=== PATIENT | female | born 1940 | race African-American/Black ===

== ENCOUNTER 2016-09-04 13:45 | Outpatient (CLI) | payer MEDICARE ==
[2016-09-04 14:21] LABS: Hemoglobin A1c 5.7 % (4.0-6.0)
[2016-09-04 14:29] LABS: ALT (SGPT) 172 U/L (8-55); AST (SGOT) 148 U/L (5-34); Albumin 3.8 g/dL (3.4-4.8); Alkaline Phosphatase 174 U/L (40-150); Anion Gap 13 mmol/L (10-20); BUN (Urea Nitrogen) 24 mg/dL (9.8-20.1); Bilirubin, Total 0.6 mg/dL (0.2-1.2); Calc. Creatinine Clearance 0 mL/min (70-130); Calcium 9.3 mg/dL (7.8-10.44); Carbon Dioxide 25 mmol/L (23-31); Cardiac Risk 4.1 (Less than 4.5); Chloride 104 mmol/L (98-107); Cholesterol 128 mg/dl (< 200 Desired); Estimated GFR-MDRD 48; Globulin 5.3 g/dL (2.4-3.5); Glucose 91 mg/dL (83-110); HDL Cholesterol 31 mg/dL (>60 Neg Risk); LDL Cholesterol, Calculated 79 mg/dL; Potassium 3.7 mmol/L (3.5-5.1); Protein, Total 9.1 g/dL (6.0-8.3); Sodium 138 mmol/L (136-145); Triglycerides 90 mg/dL (Less than 150)
[2016-09-04 14:35] LABS: #Basophils 0.2 thou/uL (0.0-0.2); #Eosinphils 0.2 thou/uL (0.0-0.7); #Monocytes 0.6 thou/uL (0.11-0.59); #Neutrophils 3.4 thou/uL (1.40-6.50); %Basophils 2.9 % (0.0-1.0); %Eosinophils 3.8 % (0.0-10.0); %Lymphocytes 31.1 % (21.0-51.0); %Monocytes 9.1 % (0.0-10.0); %Neutrophils 53.1 % (42.0-75.0); Hemoglobin 11.8 g/dL (12.0-16.0); Mean Corpuscular HGB CONC 32.4 g/dL (32.0-36.0); Mean Corpuscular Hemoglobin 28.3 pg (27.0-31.0); Mean Corpuscular Volume 87.4 fl (81.0-99.0); Mean Platelet Volume 8.5 fL (7.4-10.4); Platelet Count 364 thou/uL (130-400); RBC Distribution Width 14.2 % (11.5-14.5); Red Blood Cell (RBC) Count 4.18 mill/uL (4.20-5.40); White Blood Cell (WBC) Count 6.4 thou/uL (4.8-10.8)
== END 2016-09-04 13:46 | disposition home or self-care (01) ==
LOC: MADLABBHPM 13:45
PROVIDERS: ATTEND Family Medicine
DX: E78.5 Hyperlipidemia, unspecified (principal); I10 Essential (primary) hypertension
CPT/HCPCS: 36415; 80053; 80061; 83036; 84443; 85025

== ENCOUNTER 2016-10-22 16:26 | Outpatient (CLI) | payer MEDICARE ==
[2016-10-22 17:01] LABS: #Basophils 0.2 thou/uL (0.0-0.2); #Eosinphils 0.3 thou/uL (0.0-0.7); #Lymphocytes 2.9 thou/uL (1.20-3.40); #Monocytes 0.7 thou/uL (0.11-0.59); #Neutrophils 3.7 thou/uL (1.40-6.50); %Basophils 2.7 % (0.0-1.0); %Lymphocytes 37.1 % (21.0-51.0); %Monocytes 9.1 % (0.0-10.0); Hemoglobin 12.7 g/dL (12.0-16.0); Mean Corpuscular HGB CONC 33.4 g/dL (32.0-36.0); Mean Corpuscular Hemoglobin 29.5 pg (27.0-31.0); Mean Corpuscular Volume 88.4 fl (81.0-99.0); Mean Platelet Volume 8.8 fL (7.4-10.4); Platelet Count 391 thou/uL (130-400); RBC Distribution Width 13.9 % (11.5-14.5); Red Blood Cell (RBC) Count 4.29 mill/uL (4.20-5.40); White Blood Cell (WBC) Count 7.8 thou/uL (4.8-10.8)
[2016-10-22 17:18] LABS: ALT (SGPT) 99 U/L (8-55); AST (SGOT) 89 U/L (5-34); Albumin 3.9 g/dL (3.4-4.8); Alkaline Phosphatase 183 U/L (40-150); Anion Gap 15 mmol/L (10-20); BUN (Urea Nitrogen) 27 mg/dL (9.8-20.1); Bilirubin, Total 0.5 mg/dL (0.2-1.2); Calc. Creatinine Clearance 0 mL/min (70-130); Carbon Dioxide 23 mmol/L (23-31); Chloride 103 mmol/L (98-107); Estimated GFR-MDRD 43; Globulin 5.1 g/dL (2.4-3.5); Glucose 94 mg/dL (83-110); Potassium 3.6 mmol/L (3.5-5.1); Sodium 137 mmol/L (136-145)
[2016-10-22 17:35] LABS: Bilirubin Negative (Negative); Blood, Urine Negative (Negative); Clarity Hazy (Clear); Glucose, Urine (Dipstick) Negative (Negative); Leukocyte Trace (Negative); Nitrite Negative (Negative); Protein, Urine (Dipstick) Negative (Neg-Trace); RBC/HPF 0-3 HPF (0-3); Urobilinogen 0.2 mg/dL (0.2-1.0)
[2016-10-22 17:36] LABS: Bacteria/HPF Rare-Few HPF (None Seen); Squamous Epithelial 0-3 HPF (0-3)
== END 2016-10-22 16:27 | disposition home or self-care (01) ==
LOC: MADLABBHPM 16:26
PROVIDERS: ATTEND Family Medicine
DX: R42 Dizziness and giddiness (principal); R55 Syncope and collapse
CPT/HCPCS: 36415; 80053; 81001; 84443; 85025; 93005; 93010

== ENCOUNTER 2016-10-28 19:14 | Emergency (ER) | payer MEDICARE ==
[2016-10-28] MEDS ORDERED: Clindamycin 150 MG CAP ONE (20:25)
[2016-10-28] MEDS ORDERED: Acetaminophen 325 MG TAB ONE (20:25)
[2016-10-28] MEDS ORDERED: HYDROcodone/Acetaminophen 5/325 mg Tablet ONE (20:25)
== END 2016-10-28 20:44 | disposition home or self-care (01) ==
LOC: MADERS 19:14
DX: K03.81 Cracked tooth (principal); K02.9 Dental caries, unspecified
CPT/HCPCS: 99282

== ENCOUNTER 2016-11-27 07:52 | Outpatient (CLI) | payer MEDICARE ==
--- NOTE | 2016-11-27 10:01 | ULT ---
COMPLETE ABDOMINAL ULTRASOUND: COMPARISON: None. HISTORY: Chronic kidney disease. Cystic abnormality seen in the liver on prior renal ultrasound. TECHNIQUE: Multiplanar, munoz scale, and color Doppler images were obtained in a complete abdominal ultrasound. FINDINGS: There are numerous anechoic cysts in the liver. The largest measures 10.2 cm in greatest dimension. There is no biliary dilatation. The gallbladder is normal without stones, sludge, gallbladder wal l thickening, or pericholecystic fluid. The common bile duct is normal measuring 3 mm. The aorta and inferior vena cava are normal in caliber. The visualized portions of the pancreas are unremarkable. The spleen is normal in echogenicity without focal lesion and measures 11.6 cm in le ngth. There are numerous cysts seen in both kidneys. The largest is seen on the left measuring 3.2 cm in size. The kidneys demonstrate increased cortical echogenicity and measure 9.9 and 9.6 cm in length on the right and left, respectively. There is no evidence of hydronephrosis or shadowing calculi. IMPRESSION: 1. Hepatic cyst. 2. Bilateral renal cysts. 3. Increased echogenicity of the kidney sis likely secondary to chronic medial renal disease. POS: [facility]
== END 2016-11-27 07:53 | disposition home or self-care (01) ==
LOC: MADULT 07:52
PROVIDERS: ATTEND Internal Medicine Nephrology
DX: I12.9 Hypertensive chronic kidney disease with stage 1 through stage 4 chronic kidney disease, or unspecified chronic kidney disease (principal); N18.3 Chronic kidney disease, stage 3 (moderate); N28.1 Cyst of kidney, acquired; K76.89 Other specified diseases of liver
CPT/HCPCS: 76700

== ENCOUNTER 2017-10-28 20:28 | Emergency (ER) | payer MEDICARE ==
[~2017-10-28 20:28] MED LIST: Sodium Chloride Irrig Solution 250 ML BOT ONE
[2017-10-28] MEDS ORDERED: Lidocaine 1% 20 ML MDV ONE (20:40)
== END 2017-10-28 21:22 | disposition home or self-care (01) ==
LOC: MADERS 20:28
DX: S61.012A Laceration without foreign body of left thumb without damage to nail, initial encounter (principal); I10 Essential (primary) hypertension; E78.5 Hyperlipidemia, unspecified; Z79.82 Long term (current) use of aspirin; Z79.899 Other long term (current) drug therapy; W26.0XXA Contact with knife, initial encounter
CPT/HCPCS: 12001; J2001

== ENCOUNTER 2019-03-15 11:30 | Emergency (ER) | payer MEDICARE ==
[2019-03-15] MEDS ORDERED: Ondansetron PF 4 MG/2 ML Vial ONE (12:15)
[2019-03-15 12:34] LABS: #Basophils 0.1 thou/uL (0.0-0.2); #Eosinphils 0.2 thou/uL (0.0-0.7); #Lymphocytes 1.4 thou/uL (1.20-3.40); #Monocytes 0.6 thou/uL (0.11-0.59); #Neutrophils 5.9 thou/uL (1.40-6.50); %Basophils 1.4 % (0.0-1.0); %Eosinophils 2.1 % (0.0-10.0); %Lymphocytes 17.2 % (21.0-51.0); %Monocytes 6.7 % (0.0-10.0); %Neutrophils 72.6 % (42.0-75.0); Hemoglobin 10.7 g/dL (12.0-16.0); MDiff Complete? YES; Manual Diff?? NO; Mean Corpuscular Hemoglobin 26.1 pg (27.0-31.0); Mean Platelet Volume 7.1 fL (7.4-10.4); Platelet Count 383 thou/uL (130-400); Red Blood Cell (RBC) Count 4.12 mill/uL (4.20-5.40); White Blood Cell (WBC) Count 8.1 thou/uL (4.8-10.8)
[2019-03-15 12:44] LABS: ALT (SGPT) 14 U/L (8-55); AST (SGOT) 17 U/L (5-34); Albumin 4.2 g/dL (3.4-4.8); Alkaline Phosphatase 90 U/L (40-110); Anion Gap 16 mmol/L (10-20); BUN (Urea Nitrogen) 23 mg/dL (9.8-20.1); Bilirubin, Total 0.4 mg/dL (0.2-1.2); Calc. Creatinine Clearance 0 mL/min (70-130); Calcium 9.4 mg/dL (7.8-10.44); Carbon Dioxide 24 mmol/L (23-31); Chloride 105 mmol/L (98-107); Estimated GFR-MDRD 35; Globulin 3.7 g/dL (2.4-3.5); Glucose 161 mg/dL (83-110); Magnesium 2.1 mg/dL (1.6-2.6); Potassium 4.4 mmol/L (3.5-5.1); Protein, Total 7.9 g/dL (6.0-8.3); Sodium 141 mmol/L (136-145)
[2019-03-15 13:02] LABS: CKMB 1.4 ng/mL (0-6.6)
[2019-03-15] MEDS ORDERED: Lidocaine 1% 20 ML MDV ONE (13:49)
--- NOTE | 2019-03-15 14:37 | CT ---
CT HEAD WITHOUT CONTRAST: HISTORY: Fall with head injury. FINDINGS: Ventricles have normal size and position. There is moderate cortical atrophy. No evidence of mass o r hemorrhage. There is no evidence of cortical infarct. No significant white matter abnormality. P aranasal sinuses are clear. IMPRESSION: No acute finding. POS: [facility]
== END 2019-03-15 15:55 | disposition short-term general hospital (02) ==
LOC: MADERS 11:30
DX: S01.81XA Laceration without foreign body of other part of head, initial encounter (principal); R55 Syncope and collapse; R79.89 Other specified abnormal findings of blood chemistry; I10 Essential (primary) hypertension; E78.5 Hyperlipidemia, unspecified; Z79.82 Long term (current) use of aspirin; Z79.899 Other long term (current) drug therapy; W22.8XXA Striking against or struck by other objects, initial encounter; Y93.D2 Activity, sewing
CPT/HCPCS: 12011; 36415; 70450; 80053; 82553; 83735; 84484; 85025; 93005; J2001; J2405

== ENCOUNTER 2024-09-25 04:56 | Emergency (ER) | payer MEDICARE ==
[2024-09-25 05:31] LABS: Hematocrit 33.9 % (36.0-47.0); Hemoglobin 10.9 g/dL (12.0-16.0); MDiff Complete? YES; Mean Corpuscular Hemoglobin 27.8 pg (27.0-31.0); Mean Corpuscular Volume 86.8 fl (78.0-98.0); Platelet Count 407 10x3/uL (130-400); Red Blood Cell (RBC) Count 3.91 mill/uL (4.20-5.40); White Blood Cell (WBC) Count 11.0 10x3/uL (4.8-10.8)
[2024-09-25] MEDS ORDERED: Amiodarone In Dextrose 200 ML ONE (05:44)
[2024-09-25 05:51] LABS: ALT (SGPT) 19 U/L (Less than 34); AST (SGOT) 25 U/L (11-34); Albumin 4.1 g/dL (3.1-4.5); Alkaline Phosphatase 89 U/L (40-110); Anion Gap 19 mmol/L (10-20); BUN (Urea Nitrogen) 28 mg/dL (9.8-20.1); Bilirubin, Total 0.5 mg/dL (0.3-1.2); Calc. Creatinine Clearance 0 mL/min (70-130); Calcium 8.7 mg/dL (7.8-10.44); Carbon Dioxide 17 mmol/L (23-31); Chloride 104 mmol/L (98-107); Globulin 3.5 g/dL (2.4-3.5); Glucose 149 mg/dL (83-110); INR-International Normal Ratio 1.1; Magnesium 1.8 mg/dL (1.6-2.6); Potassium 4.7 mmol/L (3.5-5.1); Prothrombin Time 14.0 sec (12.0-14.7); Sodium 135 mmol/L (136-145)
[2024-09-25 05:52] LABS: PTT 33.4 sec (22.9-36.1)
[2024-09-25 06:07] LABS: Troponin I 0.931 ng/mL (< 0.028)
[2024-09-25] MEDS ORDERED: Ondansetron PF 4 MG/2 ML Vial ONE (06:11)
[2024-09-25] MEDS ORDERED: Furosemide 40 MG (4 mL) VIAL ONE (06:11)
== END 2024-09-25 07:02 | disposition short-term general hospital (02) ==
LOC: MADERS 04:56
DX: I47.20 Ventricular tachycardia, unspecified (principal); I11.0 Hypertensive heart disease with heart failure; I50.9 Heart failure, unspecified; E78.5 Hyperlipidemia, unspecified; Z79.899 Other long term (current) drug therapy
CPT/HCPCS: 71045; 80053; 83735; 83880; 84443; 84484; 85025; 85610; 85730; 96365; 96375; 96376; J0282; J0283; J1940; J2405

== ENCOUNTER 2024-10-20 08:14 | Outpatient (CLI) | payer MEDICARE ==
[2024-10-20 09:06] LABS: Albumin 4.0 g/dL (3.1-4.5); Anion Gap 15 mmol/L (10-20); BUN (Urea Nitrogen) 32 mg/dL (9.8-20.1); Calc. Creatinine Clearance 0 mL/min (70-130); Calcium 8.8 mg/dL (7.8-10.44); Carbon Dioxide 23 mmol/L (23-31); Chloride 109 mmol/L (98-107); Glucose 103 mg/dL (83-110); Magnesium 2.6 mg/dL (1.6-2.6); Potassium 4.1 mmol/L (3.5-5.1); Sodium 143 mmol/L (136-145)
[2024-10-20 10:10] LABS: Hematocrit 33.3 % (36.0-47.0); Hemoglobin 10.4 g/dL (12.0-16.0); Manual Diff?? YES; Mean Corpuscular Hemoglobin 27.2 pg (27.0-31.0); Mean Corpuscular Volume 87.1 fl (78.0-98.0); Platelet Count 434 10x3/uL (130-400); Red Blood Cell (RBC) Count 3.82 mill/uL (4.20-5.40); White Blood Cell (WBC) Count 6.5 10x3/uL (4.8-10.8)
[2024-10-20 10:11] LABS: MDiff Complete? YES
[2024-10-20 10:12] LABS: Platelet Adequacy Comment Appears Increased
== END 2024-10-20 08:15 | disposition home or self-care (01) ==
LOC: MADLAB 08:14
PROVIDERS: ATTEND Internal Medicine Nephrology
DX: I12.9 Hypertensive chronic kidney disease with stage 1 through stage 4 chronic kidney disease, or unspecified chronic kidney disease (principal); N18.4 Chronic kidney disease, stage 4 (severe); Q61.9 Cystic kidney disease, unspecified; E55.9 Vitamin D deficiency, unspecified
CPT/HCPCS: 36415; 80048; 82040; 83735; 84100; 85025